=== PATIENT | male | born 1995 | race Caucasian/White ===

== ENCOUNTER 2022-09-17 05:18 | Emergency (ER) | payer OTHER ==
[~2022-09-17] VITALS: Ht 190.5 cm; Wt 193.6 kg
[2022-09-17 05:21] VITALS: BP 198/101; TEMP 97.2
[2022-09-17] MEDS ORDERED: PREDNISONE20 MG PO (06:41)
[2022-09-17] MEDS ORDERED: CEPHALEXIN500 M1 PO (06:41)
[2022-09-17 07:00] VITALS: PULSE 81
== END 2022-09-17 07:00 | disposition home or self-care (01) ==
LOC: COL.ER 05:18
DX: K12.2 Cellulitis and abscess of mouth (principal); I10 Essential (primary) hypertension; Z28.310 Unvaccinated for COVID-19; Z79.899 Other long term (current) drug therapy
CPT/HCPCS: J0696; J1200; J2930; J7030